=== PATIENT | female | born 1980 | race Asian ===

== ENCOUNTER 2024-11-30 00:46 | Day surgery (SDC) | payer OTHER, SELFPAY ==
[2024-11-20 13:38] VITALS: BMI 21.7
--- OUTSIDE RECORDS SUMMARY | 2024-11-30 00:49 | XMS_ITS | Patient Health Record ---
Author Organization [facility], Formerly 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. [facility] [address] Notes/Report: eGFR >90 >=60 mL/min/1.73 m2 Interpretive Data Reference Interval Normal >/= 90 mL/min/1.73m2 Mildly decreased* 60 - 89 mL/min/1.73m2 Mildly to moderately decreased 45 - 59 mL/min/1.73m2 Moderately to severely decreased 30 - 44 mL/min/1.73m2 Severely decreased 15 - 29 mL/min/1.73m2 Kidney Failure < 15 mL/min/1.73m2 *Relative to young adult level Estimated glomerular filtration rate is determined by the 2020 CKD-EPI equation recommended by the National Kidney Foundation (A Unifying Approach to GFR Estimation: Recommendations of the NKF-ASK Task Force on Reassessing the Inclusion of Race in Diagnosing Kidney Disease, JASN 2020). The CKD-EPI equation should not be used for patients with unstable renal function and has not been validated in children and those over 70. Current interpretive data was last reviewed 2021. Differential Automated Reviewed date:03/26/2024 09:00:24 AM Interpretation: Performing Lab:[facility] , [address] [facility] [address] Notes/Report: Neut Abs 2.9 1.5-6.5 K/cumm ImmGran Abs 0.0 0.0-0.1 K/cumm Lymphocyte Abs 2.3 0.8-3.3 K/cumm [place] Abs 0.4 0.2-0.8 K/cumm Eos Abs 0.5 0.0-0.5 K/cumm Baso Abs 0.1 0.0-0.1 K/cumm Neut Pct 46.1 Interpretive Data Percent cell count reference ranges are not reported, since discordance with absolute values may lead to misinterpretation of CBC data. Current Interpretive Data was last revised on 2017. ImmGran Pct 0.3 Interpretive Data Percent cell count reference ranges are not reported, since discordance with absolute values may lead to misinterpretation of CBC data. Current Interpretive Data was last revised on 2017. Lymph Pct 37.6 Interpretive Data Percent cell count reference ranges are not reported, since discordance with absolute values may lead to misinterpretation of CBC data. Current Interpretive Data was last revised on 2017. [place] Pct 6.3 Interpretive Data Percent cell count reference ranges are not reported, since discordance with absolute values may lead to misinterpretation of CBC data. Current Interpretive Data was last revised on 2017. Eos Pct 8.7 Interpretive Data Percent cell count reference ranges are not reported, since discordance with absolute values may lead to misinterpretation of CBC data. Current Interpretive Data was last revised on 2017. Baso Pct 1.0 Interpretive Data Percent cell count reference ranges are not reported, since discordance with absolute values may lead to misinterpretation of CBC data. Current Interpretive Data was last revised on 2017. Sed Rate Reviewed date:03/26/2024 09:00:25 AM Interpretation: Performing Lab:[facility] , [address] [facility]. [place] [address] Notes/Report: ESR 11 1-20 mm/hr Parvovirus B19 Ab IgG, IgM Reviewed date:03/27/2024 09:49:59 AM Interpretation: Performing Lab:[facility] , [address] [facility]. [place] [address] Notes/Report: Parvovirus, IgG Positive Negative Parvovirus, IgM Negative Negative Parvo B19 Interp See Footnote RESULT: Results suggest past infection. ADDITIONA L INFORMATION -- This test has been modified from the karate black belt's instructions. Its performance characteristics were determined by [facility] in a manner consistent with CLIA requirements. This test has not been cleared or approved by the U.S. Food and Drug Administration. Test Performed by: [facility] [address] [place] [id number] Client Account Manager: Jerrod Lawson Ph.D.; CLIA# [id number] Lupus Anticoagulant w/Reflex Reviewed date:03/26/2024 09:00:25 AM Interpretation: Performing Lab:[facility] , [facility]. [facility] [address] Notes/Report: PT 11.0 9.7-13.0 sec Testing performed by: [facility], [address] [place]., [address] INR 1.02 0.90-1.20 Interpretive data Oral anticoagulant therapeutic ranges: Venous thromboembolism prophylaxis or treatment: 2.0-3.0 CARDIOLOGY Standard range: 2.0-3.0 High-intensity range: 2.5-3.5 Refer to indication-specific guidelines for appropriate target ranges for prosthetic heart valve replacement. Current interpretive data was last revised on 2019. Testing performed by: [facility], [address] [place]., [address] aPTT 31 28-38 sec Interpretive Data Heparin therapeutic range: 66.0 - 100.0 seconds. Range based on correlation with therapeutic heparin activity range of 0.3 - 0.7 Units/mL. Current interpretive data was last revised on 2023. Testing performed by: [facility], [address] [place]., [address] Hep C AB Reviewed date:03/26/2024 09:00:25 AM Interpretation: Performing Lab:[facility] , [facility]. [facility] [address] Notes/Report: Hepatitis C Antibody Nonreactive Nonreactive Interpretive Data Nonreactive: Antibodies to HCV not detected. Does NOT exclude the possibility of recent exposure to HCV. Equivocal: Equivocal for HCV antibodies. Supplemental molecular testing will be automatically performed to determine infection status in accordance with current CDC screening recommendations. Reactive: Positive for HCV antibodies. This may represent current or past HCV infection. Supplemental molecular testing will be automatically performed to determine current infection status in accordance with current CDC screening recommendations. Interpretive data was last revised on 2019. Hep B surf AG Reviewed date:03/26/2024 09:00:25 AM Interpretation: Performing Lab:[facility] , [address]. [place] [address] Notes/Report: Hepatitis B Surface Antigen Nonreactive Nonreactive G6PD Ql Reviewed date:03/26/2024 09:00:25 AM Interpretation: Performing Lab:[facility] , [facility]. [place] [address] Notes/Report: G6PD, Qual Normal Normal Interp data: G6PD activity should be interpreted in the context of a patient's hematocrit. Hematocrit < 20% may lead to a falsely deficient result, while hematocrit > 50% may lead to a falsely normal result. Current interpretive data was last revised on 2019. Testing performed by: [facility], [address] [place]., [address] Creatine Kinase Reviewed date:03/26/2024 09:00:25 AM Interpretation: Performing Lab:[facility] , [address] [facility]. [place] [address] Notes/Report: Total CK 126 30-200 Units/L Comprehensive metabolic pane l (CMP) Reviewed date:03/26/2024 09:00:25 AM Interpretation: Performing Lab:[facility] , [address] [facility]. [place] [address] Notes/Report: Sodium 139 135-145 mmol/L Plasma Potassium 4.3 3.3-4.9 mmol/L Chloride 102 97-110 mmol/L Total CO2 23 22-32 mmol/L Anion Gap 14 2-15 mmol/L BUN 14 6-25 mg/dL Creatinine 0.61 0.60-1.10 mg/dL Glucose 81 70-199 mg/dL Interpretive Data Fasting glucose >/= 126 mg/dl is diagnostic for diabetes. Fasting is defined as no caloric intake for at least 8 hours. Fasting glucose between 100 mg/dl to 125 mg/dl is diagnostic of prediabetes. In a patient with classic symptoms of hyperglycemia or hyperglycemic crisis, a random glucose >/= 200 mg/dl is diagnostic for diabetes. In the absence of unequivocal hyperglycemia, results should be confirmed by repeat testing. The classification and Diagnosis of Diabetes Diabetes Care 2021; 46: S19-S40. Current interpretive data was last revised 2022. Total Calcium 9.7 8.5-10.3 mg/dL Total Bilirubin 0.4 0.1-1.2 mg/dL Plasma Total Protein 7.7 6.5-8.5 g/dL Albumin 4.8 3.5-5.0 g/dL Alkaline Phosphatase 52 40-130 Units/L ALT 21 7-45 Units/L AST 20 10-45 Units/L CBC w auto diff Reviewed date:03/26/2024 09:00:25 AM Interpretation: Performing Lab:[facility] , [address] [place] [address]. [facility] [address] Notes/Report: WBC 6.2 3.8-9.9 K/cumm Hgb 13.5 11.9-15.5 g/dL Hct 41.0 35.6-45.5 % Platelet Ct 359 150-400 K/cumm MPV 9.2 9.1-12.3 fL RBC 4.28 3.90-5.20 M/cumm MCV 95.8 81.3-96.4 fL MCH 31.5 27.1-33.3 pg MCHC 32.9 32.3-35.7 g/dL RDW CV 12.1 11.1-14.9 % RDW SD 42.5 35.7-48.1 fL NRBC Abs Auto 0.00 0.00-0.01 K/cumm C Reactive Protein Reviewed date:03/26/2024 09:00:24 AM Interpretation: Performing Lab:[facility] , [facility]. [facility] [address] Notes/Report: C-Reactive Protein <3.0 <=10.0 mg/L Reason For Referral No Information Medications Medication SIG (Take, Route, Frequency, Duration) Notes Start Date End Date Status Multivitamin Active Social History Tobacco Use: Social History Observation Description Date Details (start date - stop date) Never Smoker NA - NA Household Question Answer Notes Marital status: single Number of children in household: 2 Tobacco Control (Standard) Question Answer Notes Tobacco use: Nonsmoker Problems Problem Type SNOMED Code ICD Code Onset Dates Problem Status W/U Status Risk Notes Problem [id number] Connective tissu e disease (M35.9) Active confirmed Problem [id number] Inflammatory arthritis (M19.90) Active confirmed Vital Signs Heart Rate 73 /min 07/09/2024 Temperature 98.5 degrees Fahrenheit 07/09/2024 Height-cm 170.18 cm 07/09/2024 Blood pressure diastolic 70 mm Hg 07/09/2024 Oximetry 99 % 07/09/2024 Weight-kg 65.31 kg 07/09/2024 Height 67 in 07/09/2024 Blood pressure systolic 108 mm Hg 07/09/2024 Weight 144.0 lbs 07/09/2024 BMI 22.55 kg/m2 07/09/2024 Encounters Encounter Location Date Provider Diagnosis [facility] [address], [place] [address] 03/22/2024 Rachel Du Pain in unspecified joint M25.50 ; Anti-PRICE CLERK antibodies present R76.8 and Rheumatoid factor positive R76.8 [facility] [address], [place] [address] 04/05/2024 Rachel Du Pain in unspecified joint M25.50 ; Connective tissue disease M35.9 ; Anti-PRICE CLERK antibodies present R76.8 ; Rheumatoid factor positive R76.8 and Inflammatory arthritis M19.90 [facility] [address], [place] [address] 07/09/2024 Rachel Du Anti-PRICE CLERK antibodies present R76.8 ; Connective tissue disease M35.9 ; Rheumatoid factor positive R76.8 and Inflammatory arthritis M19.90 [facility] [address], [place] [address] 05/04/2024 Rachel Du Connective tissue disease M35.9 Assessments Encounter Date Diagnosis (ICD Code) Assessment Notes Treatment Notes Treatment Clinical Notes Section Notes 03/22/2024 Anti-PRICE CLERK antibodies present (ICD-10 - R76.8) 43 year old female with joint pain. Characteristics of pain suggest inflammatory arthritis. Anti-PRICE CLERK and RF were mildly elevated. CARMEN and CCP were negative. Additional labs will be ordered. Xray of the right elbow will be ordered. Follow up visit will be scheduled. Thank you for referring this patient. cc Dr. Reagan Oconnell 04/05/2024 Pain in unspecified joint (ICD-10 - M25.50) start plaquenil 200mg/day, return in 3 months 04/05/2024 Connective tissue disease (ICD-10 - M35.9) start plaquenil 200mg/day, return in 3 months 03/22/2024 Pain in unspecified joint (ICD-10 - M25.50) 43 year old female with joint pain. Characteristics of pain suggest inflammatory arthritis. Anti-PRICE CLERK and RF were mildly elevated. CARMEN and CCP were negative. Additional labs will be ordered. Xray of the right elbow will be ordered. Follow up visit will be scheduled. Thank you for referring this patient. cc Dr. Reagan Oconnell 05/04/2024 Connective tissue disease (ICD-10 - M35.9) 07/09/2024 Anti-PRICE CLERK antibodies present (ICD-10 - R76.8) improving, continue plaquenil, advised about eye exam, return in 6 months 07/09/2024 Rheumatoid factor positive (ICD-10 - R76.8) improving, continue plaquenil, advised about eye exam, return in 6 months 07/09/2024 Connective tissue disease (ICD-10 - M35.9) improving, continue plaquenil, advised about eye exam, return in 6 months 03/22/2024 Rheumatoid factor positive (ICD-10 - R76.8) 43 year old female with joint pain. Characteristics of pain suggest inflammatory arthritis. Anti-PRICE CLERK and RF were mildly elevated. CARMEN and CCP were negative. Additional labs will be ordered. Xray of the right elbow will be ordered. Follow up visit will be scheduled. Thank you for referring this patient. cc Dr. Reagan Oconnell 04/05/2024 Anti-PRICE CLERK antibodies present (ICD-10 - R76.8) start plaquenil 200mg/day, return in 3 months 04/05/2024 Rheumatoid factor positive (ICD-10 - R76.8) start plaquenil 200mg/day, return in 3 months 07/09/2024 Inflammatory arthritis (ICD-10 - M19.90) improving, continue plaquenil, advised about eye exam, return in 6 months 04/05/2024 Inflammatory arthritis (ICD-10 - M19.90) start plaquenil 200mg/day, return in 3 months Plan Of Treatment Pending Test Test Name Order Date X ray : Elbow, right 03/22/2024 UA, reflex Micro to Culture 03/22/2024 Next Appt Details Provider Name:Rachel Bryan, [birth year] 09:45:00 AM, [address] [facility] [address], [place], [address], Insurance Providers Payer Name Payer Address Payer Phone Subscriber Number Group Number Insured Name Patient Relationship to Insured Coverage Start Date Coverage End Date [employer] [employer] [address] [address] [place] [address] [id number] Jolene Haile Self - patient is the insured Medical (General) History Medical History History ICD Code heart murmur, palpitation, vitamin D def iciency Surgical History Surgery Date(Month/Year) wisdom teeth
--- OUTSIDE RECORDS SUMMARY | 2024-11-30 00:49 | XMS_ITS | Continuity of Care Document ---
Author Organization [facility] Address [address] [facility] [place] [address] Phone Care Team Providers Care Retail Operations Specialist Name Role Phone Reagan Oconnell MD Unavailable Unavailable Allergies, Adverse Reactions, Alerts Substance Reaction Status Criticality Penicillins Hives Active No Information Procedures Procedure Date OFFICE/OUTPATIENT VISIT, EST PREV VISIT, EST, AGE 40-64 PREV VISIT, EST, AGE 40-64 OFFICE/OUTPATIENT VISIT, EST OFFICE/OUTPATIENT VISIT, EST OFFICE/OUTPATIENT VISIT, EST OFFICE/OUTPATIENT VISIT, EST PREV VISIT, EST, AGE 40-64 PREV VISIT, EST, AGE 40-64 PREV VISIT, EST, AGE 18-39 PREV VISIT, EST, AGE 18-39 PREV VISIT, EST, AGE 18-39 OFFICE/OUTPATIENT VISIT, EST OFFICE/OUTPATIENT VISIT, EST PREV VISIT, EST, AGE 18-39 OFFICE/OUTPATIENT VISIT, EST OFFICE/OUTPATIENT VISIT, EST PREV VISIT, EST, AGE 18-39 OFFICE/OUTPATIENT VISIT, EST Advance Directives Directive Yes / No Effective Date File Name No Information Encounters Encounter Description Practice Location Reason(s) For Visit Diagnoses Date Provider Providers Copied on Encounter OFFICE/OUTPA TIENT VISIT, EST [facility], [facility] [employer] [place], [address], [place] tel:[phone] [facility] RA (chief complaint) HLP (chief complaint) sore throat1 (chief complaint) Acute pharyngitisMixed hyperlipidemiaRheum atoid arthritis Aug-- 5 Anish Kirk. [address], [place], [place], [address] , [place]. tel:[phone] PREV VISIT, EST, AGE 40-64 [facility], [address], [place], [place], [address], [place] tel:[phone] [facility] physical (chief complaint) Encounter for general adult medical examination without abnormal findings Feb-0 4 Anish Kirk. [address], [place], [place], [address] , [place]. tel:[phone] PREV VISIT, EST, AGE 40-64 [facility], [address], [place], [place], [address], [place] tel:[phone] [facility] physical (chief complaint) Encounter for general adult medical exam w abnormal findingsCardiac murmurBloatingIron deficiency Sep-0 - 3 Anish Kirk. [address], [place], [place], [address] , [place]. [phone] OFFICE/OUTPA TIENT VISIT, EST [facility], [address], [place], [place], [address], [place] tel:[phone] [facility] insomnia1 (chief complaint) Primary insomnia 2 Anish Brand [address], [place], [place], [address] , [place]. tel:[phone] OFFICE/OUTPA TIENT VISIT, EST [facility], [address], [place], [place], [address], [place] tel:[phone] [facility] sore throat1 (chief complaint) Acute pharyngitis Mar-0 1 Anish Brand [address], [place], [place], [address] , [place]. tel:[phone] Referring Provider: Boogie Daly [address], [place], [place], [address]. tel:[phone] OFFICE/OUTPA TIENT VISIT, EST [facility], [address], [place], [place], [address], [place] tel:[phone] [facility] fatigue1 (chief complaint) kcl (chief complaint) leukoepeni a1 (chief complaint) knee pain1 (chief complaint) HypokalemiaLeukopen iaIron deficiencyFatiguePa in in left knee Apr-2 1 Anish Kirk. [address], [place], [place], [address] , [place]. tel:[phone] Referring Provider: Boogie Daly [address], [place], [place], [address]. tel:[phone] PREV VISIT, EST, AGE 40-[address] [facility], [address], [place], [place], [address], [place] tel:[phone] physical (chief complaint) Encntr for general adult medical exam w/o abnormal findings Sep- 0 Anish Kirk. [address], [place], [place], [address] , [place]. tel:[phone] Referring Provider: Boogie Daly [address], [place], [place], [address]. tel:[phone], [address], [place], [place], [address], [place] tel:[phone] Iron deficiencyHypokalem iaLeukopenia 201 9 Anish Kirk. [address], [place], [place], [address] , [place]. tel:[phone] Referring Provider: Boogie Daly [address], [place], [place], [address]. tel:[phone] PREV VISIT, EST, AGE 40-64 [facility], [address], [place], [place], [address], [place] tel:[phone] [facility] Physical (chief complaint) Encntr for general adult medical exam w/o abnormal findings Sep-0 3 9 Anish Kirk. [address], [place], [place], [address] , [place]. tel:[phone] Referring Provider: Boogie Daly [address], [place], [place], [address]. tel:[phone] PREV VISIT, EST, AGE 18-39 [facility], [address], [place], [place], [address], [place] tel:[phone] [facility] neck pain1 (chief complaint) PHysical (chief complaint) Encntr for general adult medical exam w/o abnormal findings 8 Anish Kirk. [address], [place], [place], [address] , [place]. tel:[phone] Referring Provider: Boogie Daly [address], [place], [place], [address]. tel:[phone] PREV VISIT, EST, AGE 18-39 [facility], [address], [place], [place], [address], [place] [phone] [facility] PHysical (chief complaint) Encntr for general adult medical exam w/o abnormal findings Nov-0 7 Anish Kirk. [address], [place], [place], [address] , [place]. tel:[phone] Referring Provider: Boogie Daly [address], [place], [place], [address]. tel:[phone] PREV VISIT, EST, AGE 18-39 [facility], [address], [place], [place], [address], [place] tel:[phone] [facility] Physical (chief complaint) Encounter for general adult medical exam w abnormal findingsCervicalgia Sep-2 2 6 Anish Kirk. [address], [place], [place], [address] , [place]. tel:[phone] Referring Provider: Reagan Oconnell, [address], [place], [place], [address]. tel:[phone] OFFICE/OUTPA TIENT VISIT, [facility], [address], [place], [place], [address], [place] tel:[phone] [facility] cough (chief complaint) murmur (chief complaint) Acute bronchitis, unspecifiedCardiac murmur 5 Anish Kirk. [address], [place], [place], [address] , [place]. tel:[phone] Referring Provider: Reagan Oconnell, [address], [place], [place], [address]. tel:[phone] PREV VISIT, [facility], AGE 18-39 [facility], [address], [place], [place], [address], [place] tel:[phone] [facility] Physical (chief complaint) Routine Medical ExamRoutine Medical Exam 5 Anish Kirk. [address], [place], [place], [address] , [place]. tel:[phone] Referring Provider: Reagan Oconnell, [address], [place], [place], [address]. tel:[phone] OFFICE/OUTPA TIENT VISIT, [facility], [address], [place], [place], [address], [place] tel:[phone] [facility] sinus symptoms (chief complaint) Sinusitis, Acute 3 Anish Kirk. [address], [place], [place], [address] , [place]. tel:[phone] Referring Provider: Reagan Oconnell, [address], [place], [place], [address]. tel:[phone] OFFICE/OUTPA TIENT VISIT, [facility], [address], [place], [place], [address], [place] tel:[phone] anxiety (chief complaint) Generalized anxiety disorder 3 Anish Kirk. [address], [place], [place], [address] , [place]. [phone] PREV VISIT, EST, AGE 18-39 [facility], [address], [place], [place], [address], [place] tel:[phone] [facility] Physical (chief complaint) Routine Medical ExamPalpitationsMur murUnspecified vitamin d deficiencyRoutine Medical Exam 3 Anish Kirk. [address], [place], [place], [address] , [place]. [phone] Family History Family Member Type Diagnosis Age At Onset Father Problem (finding) Alive and well Mother Problem (finding) Alive and well Sister Problem (finding) Alive and well Payers Payer name Insurance type Covered libertarian ID Authorjessiea antwantiffanie(s) [facility] [id number] Social History Type Description Quantity Date Captured Comments Alcohol Use Details No Caffeine Use Details Unknown Tobacco Use Status Never smoked tobacco 2024 Smoking Status Never smoker Sex Female Vital Signs Date / Time: Height Weight BMI Pulse Rate Blood Pressure Temperature Respiratory Rate Body Surface Area Head Circumference BMI percentile Pulse Ox Inhaled Ox 3:44 PM 66.00 in 145.00 lbs 23.4 0 kg/m eter (2) 67 /min 110/60 mm[Hg] 98.1 F 16 /min Chief Complaint And Reason For Visit From encounter dated '09/03/2024 15:36'. RA (chief complaint). Description: Pt has RA pt sees rheumatology pt states that her joint pain resolved with plaquenil so she stopped plaquenil Pt took plaquenil for several months and she is off ofit HLP (chief complaint). Description: Pt has HLP Pt is working on diet sore throat1 (chief complaint). Description: Pt c/o acute onset of sore throat since this morning with some myalgia and malaise Pt denies any sinus symptoms or cough Pt feels feverish . Plan Of Treatment Date Type Action Status Goal Tobacco cessation counseling completed Aug-14-2013 Goal Tobacco cessation counseling completed Referral Referred To: Rachel Adams MD [address] [place], [place], [id number] Ordered: Referrals: Rachel Adams MD. Evaluate and treat ordered Referral Ordered: DOPPLER ECHO EXAM, HEART ordered Referral Ordered: CERVICAL SPINE XRAY 7 VIEWS ordered History Of Present Illness Encounter Date Complaint History Of Prese nt Illness sore throat1 Pt c/o acute ons et of sore throat since this morning with some myalgia and malaise Pt denies any sinus symptoms or cough Pt feels feverish . HLP Pt has HLP Pt is working on diet RA Pt has RA pt see s rheumatology pt states that her joint pain resolved with plaquenil so she stopped plaquenil Pt took plaquenil for several months and she is off of it physical Pt needs annual physical Pt. She c/o bilateral hand stiffness and pain and some shoulder and elbow and knee pain for several months Pt denies any injury Pt denies any joint swelling or redness or warmth. Pt states that her hand feels very stiff in the morning. 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 Pt notices intermittent abdominal bloating after food for 3 weeks .Pt denies any abdominal pain. Pt states that she feels bloating regardless what type of food, ,but worse with spicy food. Pt denies any nausea, vomiting, diarrhea ,constipation Pt has normal BM. Pt denies any blood in stool. Pt notices occasional loose stool for a while. Pt denies any GERD or any appetite loss. Pt denies any weight loss Pt denies any other complaints insomnia1 Pt has chronic i nsomnia Pt denies any snoring or any trouble with breathing at night. Pt used to take xanax PRN which works very well. Pt is leaving country soon and she wants a prescription of xanax to take on PRn basis. Pt denies any depression or any suicidal or homicidal thought sore throat1 Pt c/o acute ons et of sore throat and headache since yesterday. Pt denies any fever, cough or sob Pt denies any rash Pt denies any recent travel. Pt notices mild lymph node swelling left side of neck area without posterior neck lymph node swelling. Pt notices mild pain left side of neck with palpation. Pt denies any stiff neck or rash or dysphagia or GI symptoms knee pain1 Pt fell by accid ent on left knee 3 months ago Pt thinks she twisted her left knee. Pt denies any swelling or erythema or warmth Pt notices sharp pain when she goes up and down stairs or when she stand on her feet for long time leukoepenia1 Pt has mild leuk openia Pt denies any fever or infection kcl Pt has history o f low kcl Pt denies any chest pain or palpitation fatigue1 Pt has mild fati dorian. Pt denies any sob or chest pain Pt denies any snoring or any sleeping issue.. Pt denies any bleeding Pt has history of low iron but not anemia. physical Pt needs annual physical. Pt works at [employer]. her co-worker was isolated recently for unknown reason but possible for COVID-19 symptoms Pt denies any symptoms. Pt denies any fever, chill, sore throat, coughing, sob, loss of taste and smell, GI symptoms. Pt denies any other complaints. Physical Pt needs annual physical. pt c/o feels nauseated without vomiting or diarrhea or blood in stool or abdominal pain x 2 days. pt feels very fatigue. Pt denies any chest pain or sob. pt just had IUD replaced last year Pt does not have period while on IUD. Pt states that she feels poor appetite as well Pt denies any fever. Pt denies any recent travel or sick contact pt denies any sore throat, coughing. Pt states that her temp went up to 99 two days ago but not anymore. neck pain1 Pt has chronic n shwetha pain PHysical Pt needs annual physical. pt c/o chronic neck pain and bilateral upper shoulder tension for seveal years Pt denies any injury Pt denies any radiculopathy Pt states that she feels tension bilateral upper shoulder area and around her neck also. Pt denies any other complaints PHysical Pt needs annual physical. Pt c/o recurrent sore throat x two weeks. . Pt denies any sinus drainage. Pt denies any ear pain or headache. Pt went to urgent care and was treated with Zpak last week. Her sore throat got better but now returned. Pt denies any dysphagia. Pt denies any headache. Pt denies any coughing. Pt denies any sick contact. Physical Pt needs annual physical. Pt is in good health. Pt does not take any medication . Pt states that her posterior neck hurts sometimes for several months. Pt denies any injury., Pt denies any radiculopathy. Pt states that she has very mild dullache intermittently. Pt denies any triggering factor. Pt denies any headache murmur Pt has mild card iac murmur. Pt denies any chset pain or sOB Pt had benign cardiac echo cough Additional infor mation: Pt c/o producive coughing with yellow phleam for 3 weeks Pt denies any chset pain or SOB. Pt denies any recent travel. Pt denies any sore throat running nose. Pt denies any sick contact. Instructions Date Instruction Additional Infor mation Increase activity. Related to En cntr for general adult medical exam w/o abnormal findings Prescribed Activity and Exercise Education Related to Dietary Surveillance and Counseling Prescribed Diet Educ ation/Lifestyle Education Regarding Diet Related to Dietary Surveillance and Counseling Perform monthly self breast examinations. Related to Encntr for general adult medical exam w/o abnormal findings Increase activity. Related to En cntr for general adult medical exam w/o abnormal findings Assessments Type Assessment Date assessment Acute pharyngitis assessment Mixed hyperlipidemia assessment Rheumatoid arthritis Mental Status Date Cognitive Assessment Orientation - [place] ed to time, place, person, situation.
[2024-11-30 13:09] VITALS: BP 106/42; PULSE 65; RESP 14; TEMP 35.9; O2SAT 100
--- NOTE | 2024-11-30 13:17 | P.PNAN_ITS ---
Anes - Initial Pre Proc Eval Procedure: Operation Date: 11/30/24 14:30 Proposed Procedures p Screening Colonoscopy - Milo Damon MD Date/Time: 11/30/24 13:17 Surgeon: Milo Damon MD Pre Op Diagnosis: Screening Patient Data Age: 44 Gender: F Height: 1.7 m Weight: 62.6 kg Last Vital Signs Temp 35.9 C L 11/30/24 13:09 Pulse 65 11/30/24 13:09 Resp 14 11/30/24 13:09 BP 106/42 L 11/30/24 13:09 Pulse Ox 100 11/30/24 13:09 O2 Del Method Room Air 11/30/24 13:09 Allergies Allergy/AdvReac Type Severity Reaction Status Date / Time No Known Allergies Allergy Verified 11/20/24 13:38 Home Medications ?Medication ?Instructions ?Recorded ?Confirmed ?Type No Home Medications 11/20/24 11/20/24 History Patient hx anesthesia problems: none Family hx anesthesia problems: none Results Review: All pre-operative results and documents have been reviewed as part of the pre- operative evaluation. [facility] Social History Social History Smoking status: Never smoker Alcohol intake: current Drinks per week: 7 Substance use type: does not use Living arrangements: with family Spiritual care concerns: No Anes - Eval Final PreProcedure Day of Procedure 11/30/24 13:17 Patient weight: normal Heart: regular rate and rhythm Lungs: clear to auscultation and normal air movement Airway: Mallampati scale class II Neurological: alert and oriented Last oral intake: >/= 8 hours ASA classification: II Emergent: no Anesthetic plan: proceed Anesthesia type and monitoring: general GIVS and standard monitoring Results Review: All pre-operative results and documents have been reviewed as part of the pre- operative evaluation. Informed Consent: The patient's anesthetic plan and its attendant risks and benefits were discussed with the patient/family/POA. Questions were solicited and answers provided to the satisfaction of the patient/family/POA.
[2024-11-30 13:19] LABS: BEDSIDEPREGUCG Negative (Negative)
[2024-11-30] MEDS: LACTATED RINGERS 1,000 ML 150 ML IV CONT (13:31)
--- NOTE | 2024-11-30 13:47 | PM.HPGS ---
History of Present Illness History of Present Illness Consent: Risks, benefits, and alternatives have been discussed and questions answered. Patient agrees to proceed with procedure. Chief complaint: Screening Narrative: Jolene Haile is a 44 year old female here for first screening colonoscopy Review of Systems Review of Systems: All systems reviewed & are unremarkable except as noted in HPI and below PMFSH Past Medical History Medical History (Updated 11/30/24 @ 13:48 by Milo Damon MD) Colon cancer screening Social History Social History Smoking status: Never smoker Alcohol intake: current Drinks per week: 7 Substance use type: does not use Living arrangements: with family Spiritual care concerns: No Meds Home Medications and Allergies Home Medications ?Medication ?Instructions ?Recorded ?Confirmed ?Type No Home Medications 11/20/24 11/20/24 History Allergies Allergy/AdvReac Type Severity Reaction Status Date / Time No Known Allergies Allergy Verified 11/20/24 13:38 Vital Signs Vital Signs - 24 hr 11/30/24 13:09 Temperature 96.7 F L Pulse Rate 65 Respiratory Rate 14 Blood Pressure 106/42 L Pulse Oximetry 100 Oxygen Delivery Room Air Exam Const: General: comfortable and no acute distress HENMT: Face/Nose/Sinus: Normal nares present Eyes: General: appearance normal, both eyes and all related structures Neck: Neck: no JVD Resp: Auscultation: clear to auscultation bilaterally Cardio: Rate: regular rate Rhythm: regular rhythm GI: Inspection: non-distended GI Palp: Yes Soft to palpation Skin: General skin exam: normal color Neuro: General: gait normal Speech: normal speech Extrem: General: normal to inspection Psych: Mental Status: mental status grossly normal Assessment and Plan Assessment and plan (1) Colon cancer screening: Code(s): Z12.11 - Encounter for screening for malignant neoplasm of colon Status: Acute Assessment and Plan: colonoscopy
[2024-11-30 14:06] VITALS: BP 77/33; PULSE 67; RESP 20; O2SAT 99
[2024-11-30 14:11] VITALS: BP 84/58; PULSE 65; RESP 21; O2SAT 100
[2024-11-30 14:16] VITALS: BP 98/39; PULSE 66; RESP 21; O2SAT 99
[2024-11-30 14:26] VITALS: BP 114/79; PULSE 57; RESP 18; O2SAT 100
== END 2024-11-30 14:45 | disposition home or self-care (01) ==
PROVIDERS: Anesthesiology; PCP Emergency Medicine; Referring Provider Obstetrics & Gynecology Gynecology; Visit Provider Internal Medicine Gastroenterology
PROC: 0DJD8ZZ Inspection of Lower Intestinal Tract, Via Natural or Artificial Opening Endoscopic (ICD-10-PCS; CPT 45378; principal; 2024-11-30 14:30)
DX: Z12.11 Encounter for screening for malignant neoplasm of colon (principal); K57.30 Diverticulosis of large intestine without perforation or abscess without bleeding
CPT/HCPCS: 45378; J2704; J7120

== ENCOUNTER 2025-05-13 14:38 | Outpatient (CLI) | payer SELFPAY ==
--- NOTE | ~2025-05-13 | MM_ITS ---
EXAMINATION: MM screening cuca BI w dean HISTORY: Screening TECHNIQUE: Craniocaudal and mediolateral oblique 3-D tomosynthesis images were obtained and synthetic 2-D images were generated. CAD analysis was submitted and interpreted. COMPARISON: Comparison to multiple prior studies sequentially, with oldest reviewed study dated , 09/19/2018 BREAST PARENCHYMAL COMPOSITION: Dense: The breasts are extremely dense, which lowers the sensitivity of mammography. FINDINGS: There is no evidence of suspicious mass, calcification, or architectural distortion to suggest malignancy in either breast. IMPRESSION: 1. No mammographic evidence of malignancy. 2. Recommend routine screening mammography in one year. BI-RADS Category 1: Negative Reviewed, dictated and finalized at location B. AL HANDLER
== END 2025-05-13 14:39 | disposition home or self-care (01) ==
LOC: CHSIMG 14:40
PROVIDERS: PCP Emergency Medicine; Visit Provider Obstetrics & Gynecology Gynecology
DX: Z12.31 Encounter for screening mammogram for malignant neoplasm of breast (principal)
CPT/HCPCS: 77063; 77067

== ENCOUNTER 2025-06-07 13:32 | Outpatient (CLI) | payer OTHER, SELFPAY ==
--- NOTE | ~2025-06-07 | US_ITS ---
EXAMINATION: US pelvic complete w TV DATE: 06/07/2025 14:30 INDICATION: Displaced IUD TECHNIQUE: Multiple transabdominal and endovaginal sonographic images of the pelvis were obtained. COMPARISON: None. FINDINGS: The uterus measures 8.7 x 3.5 x 4.9 cm. The endometrial complex measures 3 mm in thickness. Linear echogenic and shadowing T-shaped IUD in expected position within the endometrial canal. The right ovary measures 2.5 x 2.4 x 1.7 cm. The left ovary measures 2.8 x 2.1 x 1.2 cm. There is normal vascular flow in the ovaries. There is no free fluid in the pelvis. IMPRESSION: 1. IUD in expected position within the endometrial canal. Otherwise normal pelvic ultrasound. Reviewed, dictated and finalized at location A. NSED PSYCHOLOGIST DIRECTOR IMPRESSION: 1. IUD in expected position within the endometrial canal. Otherwise normal pelv ic ultrasound.
== END 2025-06-07 13:33 | disposition home or self-care (01) ==
PROVIDERS: PCP Emergency Medicine; Visit Provider Obstetrics & Gynecology Gynecology
DX: T83.89XA Other specified complication of genitourinary prosthetic devices, implants and grafts, initial encounter (principal)
CPT/HCPCS: 76830; 76856

== ENCOUNTER 2025-06-10 07:39 | Emergency (ER) | payer OTHER, SELFPAY ==
[2025-06-10 07:45] VITALS: BP 131/81; PULSE 73; RESP 16; TEMP 36.7; O2SAT 100
[2025-06-10 07:47] VITALS: BP 131/81; PULSE 56; RESP 14; O2SAT 100
--- NOTE | 2025-06-10 07:49 | ED_ITS ---
HPI - Neck Pain/Injury General Chief Complaint: Neck Pain/Injury Stated Complaint: neck pain, right arm pain Time Seen by Provider: 06/10/25 07:44 History of Present Illness HPI Narrative: Pt presents with pain to her right side of neck and shoulder radiating down into right arm for two days. Pt denies injury or triggering event. Pt said first noticed two days ago and getting steadily worse. Pt denies weakness in arm or numbness just radiating pain. Related Data Allergies Allergy/AdvReac Type Severity Reaction Status Date / Time Penicillins Allergy Unknown Unknown Verified 06/10/25 07:51 Review of Systems Review of Systems: All systems reviewed & are unremarkable except as noted in HPI and below PMFSH Past Medical History Medical History (Updated 06/10/25 @ 08:55 by Jose Starks III, DO) Colon cancer screening Social History Social History (System 05/16/25 @ 10:00 by Dannielle Multani) Smoking status: Never smoker Alcohol intake: current Drinks per week: 7 Substance use type: does not use Living arrangements: with family Spiritual care concerns: No Exam Const: General: healthy appearing, no acute distress and ill appearing Nutritional Appearance: well nourished Orientation/consciousness: patient oriented x3 Limitations: no limitations Neck: Neck: normal visual inspection, no lymphadenopathy and no meningeal signs Other: tender with spasm on right at c3-4 level and some spasm in right trapezius Resp: Effort & Inspection: normal respiratory effort Auscultation: clear to auscultation bilaterally Cardio: Rate: regular rate Rhythm: regular rhythm GI: GI Palp: Yes Soft to palpation and No Tenderness to palpation present (GI) Auscultation: normal bowel sounds Skin: General skin exam: normal color Rashes: no rashes Wounds: no wounds Neuro: General: patient oriented x3, moves all extremities, no meningeal signs and CN's II-XI intact bilaterally Cranial nerves: Yes Nystagmus not present Speech: normal speech Extrem: General: normal to inspection and no clubbing, cyanosis or edema Psych: Mental Status: mental status grossly normal Affect: normal affect Attitude: cooperative Course Vital Signs Vital signs: Vital Signs Temperature 98.1 F 06/10/25 07:45 Pulse Rate 73 06/10/25 07:45 Respiratory Rate 16 06/10/25 07:45 Blood Pressure 131/81 06/10/25 07:45 Pulse Oximetry 100 06/10/25 07:45 Oxygen Delivery Room Air 06/10/25 07:45 Temperature 98.1 F 06/10/25 07:45 Pulse Rate 74 06/10/25 09:36 Respiratory Rate 16 06/10/25 09:36 Blood Pressure 104/59 L 06/10/25 09:36 Pulse Oximetry 100 06/10/25 09:36 Oxygen Delivery Room Air 06/10/25 07:45 MDM MDM Narrative Medical decision making narrative: will give toradol and robaxin and reassess. better after meds. home on naprosyn and robaxin Differential Diagnosis Differential Diagnosis: cervical strain/spasm vs disc more likely prior Discharge Plan Discharge Clinical Impression: Strain of neck muscle Patient Disposition: Home Condition: Improved Instructions: Antibiotic Form, Cervical Strain (ED) Patient Language: Ukrainian Prescriptions: New naproxen [Naprosyn] 500 mg tablet 500 mg PO BID Qty: 20 0RF methocarbamol 750 mg tablet 750 mg PO TID Qty: 30 0RF Follow-up/Referrals: Reagan Oconnell MD [Physician, Family Practice]
[2025-06-10] MEDS: KETOROLAC 30 MG/ML VIAL (*BKC) IM (07:58)
[2025-06-10 09:36] VITALS: BP 104/59; PULSE 74; RESP 16; O2SAT 100
== END 2025-06-10 10:15 | disposition home or self-care (01) ==
PROVIDERS: Emergency Provider Emergency Medicine
DX: S16.1XXA Strain of muscle, fascia and tendon at neck level, initial encounter (principal); X58.XXXA Exposure to other specified factors, initial encounter
CPT/HCPCS: 96372; 99283; A9270; J1885